=== PATIENT | female | born 1955 | race Two or more races ===

== ENCOUNTER 2019-11-03 11:11 | Outpatient (CLI) | payer MEDICAID ==
[~2019-11-03] VITALS: Ht 154.9 cm; Wt 58.1 kg
[2019-11-03 12:55] VITALS: BP 123/78
[2019-11-03] MEDS ORDERED: PANTOPRAZOLE SO40 MG ORAL (12:55)
--- NOTE | 2019-11-04 15:15 | Consultation ---
DATE OF CONSULTATION: 11/03/2019 CONSULTING PHYSICIAN: Lenny Santana M.D. CHIEF COMPLAINT: Referral for screening colonoscopy. PAST MEDICAL HISTORY: 1. History of hemorrhoids. 2. GERD. 3. H. pylori positive gastritis, status post treatment. PAST SURGICAL HISTORY: None. MEDICATIONS: Pantoprazole. FAMILY HISTORY: Father had pancreatic cancer. Mother had diabetes. SOCIAL HISTORY: The patient denies any tobacco, alcohol, or drug abuse. ALLERGIES: No known drug allergies. REVIEW OF SYSTEMS: Positive for abdominal pain and occasional GERD. PHYSICAL EXAMINATION: VITAL SIGNS: Temperature 97.9, blood pressure 123/78, pulse 72, and respirations 20. HEENT: Normocephalic and atraumatic. Sclerae anicteric. NECK: Supple. No evidence of obvious lymphadenopathy. CARDIOVASCULAR: Regular rate and rhythm. Plus S1 and S2. No obvious murmur. LUNGS: Clear to auscultation bilaterally. ABDOMEN: Positive bowel sounds. Soft and nontender. No rebound. No guarding. No peritoneal sign. EXTREMITIES: No cyanosis, no clubbing, no edema. ASSESSMENT AND PLAN: The patient is a 64-year-old female referred for screening colonoscopy evaluation. The patient was given the instruction for colonoscopy. The risks and benefits of procedure was explained to her. The patient agreed. We are waiting for authorization to schedule her. Lenny Santana M.D. DR: PASTOR JOB#: [id number] CC:
== END 2019-11-03 13:11 | disposition home or self-care (01) ==
LOC: PAN 11:11
DX: K21.9 Gastro-esophageal reflux disease without esophagitis (principal); Z79.899 Other long term (current) drug therapy; R10.9 Unspecified abdominal pain